=== PATIENT | female | born 1955 | race Caucasian/White ===

== ENCOUNTER → 2017-03-29 | Outpatient (CLI) | payer OTHER ==
--- NOTE | 2017-03-29 15:16 | MAMMOGRAPHY REPORT ---
BILATERAL DIGITAL SCREENING MAMMOGRAM WITH CAD: 03/29/2017 CLINICAL HISTORY: Routine screening examination. TECHNIQUE: Bilateral CC and MLO views were obtained. Current study was also evaluated with a Comput er Aided Detection (CAD) system. COMPARISON: No prior exams were available for comparison. BREAST COMPOSITION: There are scattered areas of fibroglandular density in both breasts. FINDINGS: There is a 6 mm nodular asymmetry in the lateral, middle one third of the right breast on the CC view which could represent normal overlapping fiberglass glandular tissue. However, additiona l spot compression tomosynthesis views and possible ultrasound are recommended. There is a 13 mm asy mmetry in the medial posterior left breast on the CC view also warranting additional spot compression tomosynthesis views with possible ultrasound. A partially circumscribed 7 mm mass in the lower inne r anterior left breast could represent a cyst. However, targeted ultrasound and possible additional mammographic views is recommended. No suspicious microcalcifications or focal areas of architectural distortion are seen bilaterally. IMPRESSION: ACR BI-RADS CATEGORY 0: INCOMPLETE EVALUATION: NEED ADDITIONAL IMAGING EVALUATION The bilateral asymmetries and partially circumscribed left breast mass need additional imaging evalua tion. The patient will be called to schedule an appointment. Approximately 10% of breast cancers are not detected with mammography. A negative mammographic report should not delay biopsy if a clinically suggestive mass is present. Concha Munson M.D. ay/:03/29/2017 14:51:57 Pensionholder Information Clerk: Ruba GONGORA)([place]), [facility] letter sent: Addl Imaging 0 BI-RADS Code: ACR BI-RADS Category 0: Incomplete Evaluation: Need Additional Imaging Evaluation
== END | disposition home or self-care (01) ==
LOC: C.MAMM 14:34
PROVIDERS: ATTEND Internal Medicine
DX: Z12.31 Encounter for screening mammogram for malignant neoplasm of breast (principal); N64.89 Other specified disorders of breast; N63.0 Unspecified lump in unspecified breast

== ENCOUNTER → 2017-10-05 | Outpatient (CLI) | payer OTHER ==
--- NOTE | 2017-10-05 15:47 | MAMMOGRAPHY REPORT ---
UNILATERAL LEFT DIGITAL DIAGNOSTIC MAMMOGRAM TOMOSYNTHESIS WITH CAD: 10/05/2017 CLINICAL HISTORY: Short interval follow-up of left breast asymmetry. The patient reports no current complaints. TECHNIQUE: Breast tomosynthesis in addition to standard 2D mammography was performed. Current study was also evaluated with a Computer Aided Detection (CAD) system. Left CC and MLO 2D and tomosynthesi s images were obtained. COMPARISON: Comparison is made to exams dated: 04/07/2017 ultrasound, 04/07/2017 mammogram, and 2016 mammogram - [facility]. BREAST COMPOSITION: There are scattered areas of fibroglandular density in the left breast. FINDINGS: The previously described focal asymmetry seen within the left upper inner quadrant appears stable compared to the March 2017 exam, and has the appearance of fibroglandular tissue on the betsy synthesis images. On the prior April 2017 ultrasound exam, a focal island of fibroglandular tissu e was seen within the left 10:00 breast which was felt to correspond with the asymmetry. Given the m orphology and stability, the finding is probably benign and likely represents normal fibroglandular t issue. The remainder of the left breast is also stable compared to the prior exam, without suspicious masses , calcifications, or areas of architectural distortion noted. Circumscribed benign-appearing 7 mm ma ss within the left 9:00 breast is stable and was shown to represent a benign cyst on the prior ultras ound exam. IMPRESSION: ACR-BI-RADS CATEGORY 3: PROBABLY BENIGN Focal asymmetry in the left upper inner quadrant is stable compared to the March 2017 exam, and is probably benign and likely represents an island of normal fibroglandular tissue. Recommend bilateral diagnostic tomosynthesis mammograms in 6 months to reevaluate the left breast asymmetry and for rout ine mammography of the right breast. The patient has been verbally notified of the results. Approximately 10% of breast cancers are not detected with mammography. A negative mammographic report should not delay biopsy if a clinically suggestive mass is present. Alyssa Rodas M.D. /:10/05/2017 09:12:24 Field Contractor: Volodymyr GONGORA)([place]), [facility] letter sent: Follow Up Recommended 3 BI-RADS Code: ACR-BI-RADS Category 3: Probably Benign
== END | disposition home or self-care (01) ==
LOC: C.MAMM 08:50
PROVIDERS: ATTEND Internal Medicine
DX: N64.89 Other specified disorders of breast (principal)